=== PATIENT | female | born 1960 | race Asian ===

== ENCOUNTER 2022-03-25 16:53 | Emergency (ER) | payer MEDICAID ==
[~2022-03-25] VITALS: Ht 157.5 cm; Wt 52.3 kg
[2022-03-25 17:22] VITALS: BP 152/92
--- NOTE | 2022-03-25 17:31 | NUR ---
PATIENT REPORTS LEFT FLANK PAIN THAT STARTED YESTERDAY. DENIES N/V/D. ALERT AND ORIENTED X4
[2022-03-25] MEDS ORDERED: IBUP-1842 PO (18:11)
[2022-03-25] MEDS ORDERED: CEPH-588 PO (18:11)
== END 2022-03-25 18:20 | disposition home or self-care (01) ==
LOC: MED 16:53
DX: L03.012 Cellulitis of left finger (principal); Z79.899 Other long term (current) drug therapy
CPT/HCPCS: 73140; 90471; 90715; 99283